=== PATIENT | female | born 1990 | race Caucasian/White ===

== ENCOUNTER 2016-10-21 06:07 | Day surgery (SDC) | payer MEDICAID ==
[~2016-10-21] VITALS: Ht 172.7 cm; Wt 84.8 kg
[~2016-10-21 06:07] MED LIST: BACTRIM DS 8001 TA1 PO; CITALOPRAM HYDR40 MG PO; CITALOPRAM40 M1 PO; CLONAZEPAM2 MG PO; IBUPROFEN800 MG PO; LODINE200 MG PO; LORTAB 5/3251 TAB PO; MOTRIN 100100 MG/5 M FT; MOTRIN 400MG.400 MG PO; MOTRIN600 M1 PO; NICOTINE T21 MG/24 H TD; NOMEDS XX; PERCOCET1 TA1 PO; PRENATAL VITAMI1 TA3 PO; PRENATAL1 TA5 PO; RESTORIL 15MG C15 MG PO
[2016-10-21 06:59] LABS: HEMOGLOBIN 13.4 g/dL (12.2-16.2); LYMPH # 1.6 K/mm3 (0.7-4.5); LYMPH % 28.1 % (10-50.0)
[2016-10-21 07:01] LABS: BUN 12 mg/dL (7-18); GFR (ESTIMATED) 102 ML/MIN (59-)
--- NOTE | 2016-10-21 08:24 | Operative Note ---
Procedure/Operative Record Procedure Date of procedure: 10/21/16 Pre-Op Dx: Desire for sterilization Post-Op Dx: Desire for sterilization Procedure performed: Laparoscopic bilateral salpingectomy Surgeon: Dr. Ellis Hutson Director Of Cardiac Cath Lab(s): None Anesthesia: Samy Rodriguez EBL (ml): 25 Clinical note: She is a 26-year-old 3 para 2 aborta 1 who expresses desire for sterilization. The risks and benefits as well as the irreversibility of bilateral salpingectomy were discussed with the patient prior surgery. Operative findings: She had a normal-appearing uterus the tubes and ovaries. Normal. On the RIGHT side there were some adhesions of the tube to the ovary. There were also some thick adhesions on the LEFT side from the ovary to the pelvic sidewall. There were significant filmy adhesions as well possibly consistent with old pelvic inflammatory disease. The appendix was not visualized. I suspect it was retrocecal. The upper abdomen was visualized and appeared normal. Operative note: She was taken the operating room where general anesthesia was found be adequate. She was prepped and draped in normal sterile fashion in the semi-lithotomy position. A weighted speculum was placed in the vagina and the anterior lip of the cervix was grasped with a tenaculum. Jenkins dilators used to dilate the cervix to approximate 4 mm. I then inserted a Whitney uterine manipulator into the uterine cavity and insufflated the balloon. I injected approximately 10 mL of 0.5 percent ropivacaine around the umbilicus and made a small incision within the umbilicus. I inserted a Veress needle into the abdominal cavity. The abdominal cavity was then insufflated with carbon dioxide gas to a pressure of 20 mmHg. I then injected through and through at the pubic hairline, made a small incision here and inserted an 8 mm trocar under direct vision. I identified the inferior epigastric arteries on the LEFT side and went lateral to these. I injected through and through, made a small incision and then inserted a 5 mm trocar under direct vision. The patient's RIGHT tube was grasped near the cornua and I cauterized across the tube. I then grasped the distal end of the tube and using Harmonic scalpel cut along the meso salpinx. There were a number of adhesions here and these were taken down with Harmonic scalpel as well. The tube was then removed. This was similarly performed on the patient's LEFT side. There were some thick adhesions in the lower pelvis on the LEFT side and I elected to just remove these adhesions. I then once again inspected for hemostasis and was found be excellent. I then injected approximately 25 mL of 0.5 percent ropivacaine into the pelvis. The LEFT lower quadrant trocar was then removed under direct vision. The gas was let out of the abdomen and the 8 mm trocar was removed. All the sites were hemostatic. I then removed the primary trocar and camera. The 8 mm trocar site was then closed using 2-0 Vicryl suture followed by interrupted subcuticular 4-0 Monocryl suture. The 5 mm trocar sites were closed with subcuticular 4-0 Monocryl suture. Sterile dressings were applied. The patient tolerated the procedure well and was taken to the recovery room in excellent condition. All sponges minute and needle counts were correct. Estimate a blood loss was less than 25 mL. Conplications: None Specimens: Bilateral fallopian tubes at 0819
--- NOTE | 2016-10-21 08:28 | Anesthesia Record ---
Anesthesia Record Part I Total IV fluids: 1000 EBL (ml): 25 Urine Output: 25 B/P: 150/96 % SaO2: 100 Pulse: 109 Resps: 12 Temp: 98.3 Patient is: Awake, Stable Stable to PACU at: 0825 at 0828
--- NOTE | 2016-10-21 08:29 | Anesthesia Record ---
Anesthesia Record Part II Discharge time: 854 Destination: Same day surgery PACU nurse assessment review? Yes Patient is: Awake, Stable Anesthesia complications? No at 6902
[2016-10-21 10:31] VITALS: BP 148/99
== END 2016-10-21 10:20 | disposition home or self-care (01) ==
LOC: SDC 06:07
PROVIDERS: Nurse Practitioner Obstetrics & Gynecology
PROC: 0UT74ZZ Resection of Bilateral Fallopian Tubes, Percutaneous Endoscopic Approach (ICD-10-PCS; principal; 2016-10-21 07:30)
DX: Z30.2 Encounter for sterilization (principal)
CPT/HCPCS: J2405